=== PATIENT | female | born 1945 | race Caucasian/White ===

== ENCOUNTER 2018-04-10 17:13 | Emergency (ER) | payer MEDICARE ==
[~2018-04-10] VITALS: Ht 160 cm; Wt 84.1 kg
[2018-04-10 17:47] VITALS: Ht 160 cm; Wt 84.1 kg
[2018-04-10] MEDS ORDERED: RIOMET500 MG/5 M (17:50)
[2018-04-10] MEDS ORDERED: NORVASC2.5 MG (17:50)
[2018-04-10] MEDS ORDERED: GLUCOTROL ER2.5 MG (17:50)
[2018-04-10] MEDS ORDERED: COREG 3.1253.125 MG (17:50)
[2018-04-10] MEDS ORDERED: SINGULAIR 4 MG P4 MG (17:50)
[2018-04-10] MEDS ORDERED: SYNTHROID25 MCG (17:51)
[2018-04-10] MEDS ORDERED: PRANDIN1 MG (17:51)
[2018-04-10] MEDS ORDERED: DIOVAN40 MG (17:51)
[2018-04-10 18:34] LABS: BASOPHILS 0 % (0-2); HEMATOCRIT 40.7 % (36.0-48.0); HEMOGLOBIN 14.1 g/dL (12-16); IMMATURE GRANULOCYTES 0.1 % (0-5); LYMPHOCYTES 23.1 % (15-50); MCHC 34.6 g/dL (31.0-37.0); MCV 92.3 fL (80.0-100.0); MEAN PLATELET VOLUME 10.3 fL (7.4-10.4); MONOCYTES 5.4 % (2-11); NEUTROPHILS 70.4 % (40-80); PLATELET COUNT 207 10x3/uL (130-400); RBC 4.41 10x6/uL (4.00-5.40); RDW 12.8 % (11.5-14.5); WBC 7.8 10x3/uL (4.8-10.8)
[2018-04-10 18:50] LABS: ALBUMIN 3.7 g/dL (3.4-5.0); ALKALINE PHOSPHATASE 69 U/L (46-116); ALT (SGPT) 33 U/L (10-68); CALC OSMOLALITY 294 mosm/kg (275-300); CALCIUM 9.1 mg/dL (8.5-10.1); CARBON DIOXIDE 26.5 mmol/L (21.0-32.0); CHLORIDE - SERUM 101 mmol/L (98-107); CREATININE - SERUM 1.5 mg/dL (0.6-1.3); GLUCOSE 308 mg/dL (74-106); POTASSIUM - SERUM 4.1 mmol/L (3.5-5.1); PROTEIN - SERUM 7.7 g/dL (6.4-8.2); SODIUM 139 mmol/L (136-145); UREA NITROGEN 26 mg/dL (7-18); eGFR NON AFRICAN AMERICAN 36 mL/min (90-120)
[2018-04-10 19:01] LABS: CKMB 0.5 U/L (0.0-3.6); CREATINE KINASE 23 UL (21-215); TROPONIN-I < 0.017 ng/mL (0.000-0.060)
[2018-04-10 19:12] LABS: KETONE - SERUM NEGATIVE (NEGATIVE)
[2018-04-10 21:35] VITALS: BP 153/67
== END 2018-04-10 21:35 | disposition home or self-care (01) ==
LOC: D.ER 17:13
PROVIDERS: Family Medicine
DX: R53.1 Weakness (principal); E86.0 Dehydration; E11.65 Type 2 diabetes mellitus with hyperglycemia; I10 Essential (primary) hypertension; I45.2 Bifascicular block

== ENCOUNTER → 2019-01-31 09:57 | Outpatient (CLI) | payer MEDICARE ==
[2018-04-10 17:47] VITALS: BMI 32.8
[~2019-01-31 09:57] MED LIST: COREG 3.1253.125 MG; DIOVAN40 MG; GLUCOTROL ER2.5 MG; NORVASC2.5 MG; PRANDIN1 MG; RIOMET500 MG/5 M; SINGULAIR 4 MG P4 MG; SYNTHROID25 MCG
== END | disposition home or self-care (01) ==
LOC: D.HCCECHO 09:57
PROVIDERS: ATTEND Internal Medicine Cardiovascular Disease
DX: I45.10 Unspecified right bundle-branch block (principal); I10 Essential (primary) hypertension

== ENCOUNTER 2019-02-21 11:23 | Outpatient (CLI) | payer MEDICARE ==
[~2019-02-21] VITALS: Ht 160 cm; Wt 81.8 kg
--- NOTE | ~2019-02-21 | HEMODYNAMI ---
PATIENT:ANDREW CERON MEDICAL RECORD: [id number] : 45 LOCATION:[facility] ADMISSION DATE: 02/21/19 Generatedon:02/21/201914:28 Patient name: ANDREW CERON Patient #: [id number] : 1945 Date of study: 02/21/2019 Page: Of Hemodynamic Procedure Report Patient Data Patient Demographics Procedure consent was obtained First Name: ANDREW Gender: Female Last Name: OSMANY : 1945 [facility] Initial: RACHELE Age: 73 year(s) Patient #: [id number] Race: SSN: [id number] Additional ID: [id number] Contact details [address]: [address] [place] [address] State: [place] City: [place] Zip code: [address] Admission Admission Data Admission Date: 02/21/2019 Admission Time: 11:23 Arrival Date: 02/21/2019 Arrival Time: 13:00 Admit Source: Other Insurance Payor: Medicare [facility] #: [id number] Height (in.): 62.99 BSA: 1.85 (m2) Height (cm.): 160 BMI: 32.03 (kg/m2) Weight (lbs.): 180.78 Weight (kg.): 82 Lab Results Lab Result Date: 02/21/2019 Lab Result Time: 0:00 Biochemistry Name Units Result Min Max BUN mg/dl 19 --(----)*- 7 18 Creatinine mg/dl 0.8 --(-*--)-- 0.6 1.3 eGFR ml/min 73.81942 *-(----)-- 90 120 NONAFRICAN CBC Name Units Result Min Max Hemoglobin g/dl 13.9 --(*---)-- 13.5 17.5 Procedure Procedure Types Cath Procedure Diagnostic Procedure LHC LHC w/Coronaries Sedation Charges Moderate Sedation up to 15 minutes Procedure Description Procedure Date Procedure Date: 02/21/2019 Procedure Start Time: 14:14 Procedure End Time: 14:26 Procedure Staff Name Function Jr Lemons MD Performing Physician Julissa Casillas RT Monitor Nancy Ortez RT Scrub Holland Villanueva RN Nurse Procedure Data Cath Procedure Fluoroscopy Diagnostic fluoroscopy Total fluoroscopy Time: 1.8 time: 1.8 min min Diagnostic fluoroscopy Total fluoroscopy dose: 384 dose: 384 mGy mGy Contrast Material Contrast Material Type Amount (ml) Isovue 300 48 Entry Location Entry Primary Successful Side Size Upsize Upsize Entry Closure Cooper ccessful Closure Location (Fr) 1 (Fr) 2 (Fr) Remarks Device Remarks Radial Right 6 Fr Mechanical artery Short Compression Estimated blood loss: 5 ml Diagnostic catheters Device Type Used For End Catheter Placement DIAGNOSTIC [place] 110cm 5 Procedure Fr catheter ([id number]) Procedure Complications No complications Procedure Medications Medication Administration Route Dosage 0.9% NaCl I.V. 100 ml/hr Oxygen etCO2 Nasal cannula 2 l/min Heparin Flush Bag added to field 2 bags (1000units/500ml NS) Lidocaine 2% added to field 20 Benadryl I.V. 50 mg Versed I.V. 1 mg Fentanyl I.V. 50 mcg Versed I.V. 1 mg Versed I.V. 1 mg Radial Cocktail I.A. 1 syringe (Verapamil 2mg/Nitro 400mcg/Heparin 1500units) Hemodynamics Rest BSA: 1.85 (m2) HGB: 13.9 (g/dl) O2 Consumption: Estimated: 161.03 (ml/min) O2 Co nsumption indexed: Estimated:87.04 (ml/min/m) Heart Rate: 58 (bpm) Pressure Samples Time Site Value (mmHg) Purpose Heart Use Rate(bpm) 14:19 LV 83/-1,-2 Snapshot 68 14:19 LV 80/-3,-3 Snapshot 77 Gradients Valve Time Site Site Mean SEP/DFP Peak To Heart Use 1 2 (mmHg) (sec/min) Peak Rate (mmHg) (bpm) Aortic 14:20 LV AO 51 Snapshots Pre Cath Intra NCS Post Cath Vital Signs Time Heart Resp SPO2 etCO2 NIBP (mmHg) Rhythm Pain Sedation Rate (ipm) (%) (mmHg) Status Level (bpm) 13:49:04 58 14 98 0 143/66(119) NSR 0 (11) 10(A) , No pain 13:53:29 59 10 97 0 150/64(110) NSR 0 (11) 10(A) , No pain 13:57:47 54 15 100 40.2 140/87(122) NSR 0 (11) 10(A) , No pain 14:02:05 74 10 100 40.2 154/75(119) NSR 0 (11) 10(A) , No pain 14:06:27 57 13 100 25.7 137/67(107) NSR 0 (11) 10(A) , No pain 14:10:43 70 13 99 0 128/58(102) NSR 0 (11) 10(A) , No pain 14:15:01 55 13 99 0 130/63(96) NSR 0 (11) 9(A) , No pain 14:19:15 77 14 98 0 108/64(85) NSR 0 (11) 9(A) , No pain 14:23:23 79 13 96 0 125/67(92) NSR 0 (11) 9(A) , No pain Medications Time Medication Route Dose Verified Delivered Reason Notes Effectiveness by by 13:51:16 0.9% NaCl I.V. 100 Holland Holland Per ml/hr Rich Villanueva physician RN RN 13:51:27 Oxygen etCO2 2 l/min Holland Holland for low 02 Nasal Lorigan Lorigan sats cannula RN RN 13:51:40 Heparin Flush added 2 bags Holland Holland used for Bag to Rich Villanueva procedure (1000units/500ml RN RN NS) 13:51:50 Lidocaine 2% added 20ml Holland Holland for local to vial Rich Villanueva anesthetic RN RN 13:52:01 Benadryl I.V. 50 mg Holland Holland Per Rich Villanueva physician RN RN 13:58:40 Versed I.V. 1 mg Holland Holland for sedation Rich Villanueva RN RN 13:58:49 Fentanyl I.V. 50 mcg Holland Holland for sedation Rich Villanueva RN RN 14:04:40 Versed I.V. 1 mg Holland Holland for sedation Rich Villanueva RN RN 14:13:35 Versed I.V. 1 mg Holland Holland for sedation Rich Villanueva RN RN 14:17:40 Radial Cocktail I.A. 1 Holland Jr for (Verapamil syringe Rich Lemons MD vasodilation 2mg/Nitro RN 400mcg/Heparin 1500units) Procedure Log Time Note 13:30:40 Diagnostic Cath Status : Elective 13:31:38 Lab Result : Hemoglobin 13.9 g/dl 13:31:38 Lab Result : eGFR NONAFRICAN 73.29758 ml/min 13:31:38 Lab Result : BUN 19 mg/dl 13:31:38 Lab Result : Creatinine 0.8 mg/dl 13:32:02 Informed consent obtained and on chart 13:33:05 Admit Source: Other 13:33:07 Arrival Date: 02/21/2019 1:00:00 PM 13:33:31 Insurance Payor : Medicare 13:33:34 Patient Height : 62.99 inches 13:33:38 Patient Weight : 180.78 lbs 13:33:58 Procedure Status Elective Heart Cath (OP). 13:33:59 Julissa Casillas RT(R) sent for patient. Start room use. 13:34:08 Time tracking: Regular hours (M-F 7:00 - 5:00) 13:34:13 Plan of Care:Hemodynamics will remain stable., Cardiac rhythm will remain stable., Comfort level will be maintained., Respiratory function will remain adequate., Patient/ family verbilizes understanding of procedure., Procedure tolerated without complication., Recovers from procedure without complications.. 13:47:47 Patient received from Pre/Post Procedure Room to CCL 2 Alert and oriented. Tansferred to table in Supine position. 13:47:48 Warm blankets applied, and hailee hugger turned on for patient comfort. 13:47:49 Correct patient and procedure confirmed by team. 13:47:49 ECG and BP/O2 sat monitors applied to patient. 13:47:49 Vital chart was started 13:47:50 Baseline sample Acquired. 13:47:54 Rhythm: sinus rhythm 13:47:56 Full Disclosure recording started 13:47:59 H&P Date Dictated: 02/21/2019 Within 30 days and on chart., H&P Addendum completed by physician on day of procedure. (MUST COMPLETE FOR ALL OUTPATIENTS). 13:48:01 Pre-procedure instructions explained to patient. 13:48:01 Pre-op teaching completed and patient verbalized understanding. 13:48:03 Family in patients room. 13:48:04 Patient NPO since Midnight. 13:48:07 Is the patient allergic to Iodine/contrast media? No. 13:48:08 Was the patient premedicated? Yes 13:51:16 0.9% NaCl 100 ml/hr I.V. was administered by Holland Villanueva RN; Per physician; Verbal order read back and verified. 13:51:27 Oxygen 2 l/min etCO2 Nasal cannula was administered by Holland Villanueva RN; for low 02 sats; Verbal order read back and verified. 13:51:40 Heparin Flush Bag (1000units/500ml NS) 2 bags added to field was administered by Holland Villanueva RN; used for procedure; Verbal order read back and verified. 13:51:50 Lidocaine 2% 20ml vial added to field was administered by Holladn Villanueva RN; for local anesthetic; Verbal order read back and verified. 13:52:01 Benadryl 50 mg I.V. was administered by Holland Villanueva RN; Per physician; Verbal order read back and verified. 13:52:10 2) 60-89 Mildly reduced kidney function, and other findings (as for stage 1) point to kidney disease. 13:52:27 Maximum allowable contrast dose (3.7 X eGFR X 0.75)205 ml. 13:52:43 Is patient on blood thinner?No 13:52:47 Patient diabetic? Yes. 13:53:16 Snore? Unknown 13:53:17 Sleep apnea? No 13:53:23 Dentures? No ? 13:53:27 Patient pain scale 0/10 ?. 13:53:34 IV patent on arrival in left forearm with 0.9% NaCl at [facility]. 13:53:39 Lab results completed and on chart. 13:54:04 Stress Test: yes; abnormal apical 13:54:10 Risk of Mortality: .1 13:54:14 Risk of blood transfusion: .1 13:54:17 Risk of TIFFANIE: .1 13:54:23 Right Radial & Right Groin area was prepped with chlora-prep and draped in sterile fashion 13:54:24 Alarms reviewed by R. N. 13:54:25 Sharps counted by scrub and verified by R.N. 13:54:30 Physician paged 13:54:30 Physician arrived 13:54:32 --------ALL STOP TIME OUT------ 13:54:33 Final Timeout: patient, procedure, and site verified with staff and physician. All members of the team are in agreement. 13:54:52 Right Radial & Right Groin site verified by team. 13:54:56 Fire Safety Assessment: A--An alcohol-based skin anteseptic being used preoperatively., C--Open oxygen or nitrous oxide is being used., D--An ESU, laser, or fiber-optic light is being used. 13:55:02 Physical assessment completed. ASA score P 2 - A patient with mild systemic disease as per Jr Lemons MD. 13:55:08 Sedation plan: IV Moderate Sedation Medication:Versed, Fentanyl 13:55:17 Use device set Radial Dx or PCI 13:55:19 ACIST Syringe (78687) opened to sterile field. 13:55:19 Medline Cath Pack ([id number]) opened to sterile field. 13:55:20 Bag Decanter (2002S) opened to sterile field. 13:55:21 ACIST Hand Control (30828) opened to sterile field. 13:55:21 ACIST Manifold (42965) opened to sterile field. 13:55:27 MBrace Wrist Support ([id number]) opened to sterile field. 13:55:28 NEEDLE Cook 21G 4cm Radial (I05676) opened to sterile field. 13:55:31 EMERALD Guide Wire (118-545) opened to sterile field. 13:55:31 SHEATH 6FR RAIN (3723884) opened to sterile field. 13:58:40 Versed 1 mg I.V. was administered by Holland Villanueva RN; for sedation; Verbal order read back and verified. 13:58:49 Fentanyl 50 mcg I.V. was administered by Holland Villanueva RN; for sedation; Verbal order read back and verified. 14:04:40 Versed 1 mg I.V. was administered by Holland Villanueva RN; for sedation; Verbal order read back and verified. 14:07:00 Zero performed for pressure channel P1 14:12:55 Procedure started. 14:13:35 Versed 1 mg I.V. was administered by Holland Villanueva RN; for sedation; Verbal order read back and verified. 14:14:47 Local anesthetic to right radial artery with Lidocaine 2% by Jr Lemons MD.INITIAL ACCESS ONLY 14:17:40 Radial Cocktail (Verapamil 2mg/Nitro 400mcg/Heparin 1500units) 1 syringe I.A. was administered by Jr Lemons MD; for vasodilation; Verbal order read back and verified. 14:19:29 A 6 Fr Short sheath was inserted into the Right Radial artery 14:19:36 J wire advanced. 14:20:08 EF : 55 % 14:20:27 A DIAGNOSTIC [place] 110cm 5 Fr catheter (140452) was advanced over the wire and used for Procedure. 14:20:35 LV angiography performed. 14:20:41 LCA angiography performed. 14:23:04 RCA angiography performed. 14:23:06 Catheter removed. 14:24:20 ZEPHYR LARGE TR BAND (170299) opened to sterile field. 14:24:35 Sheath removed intact; hemostasis achieved with Mechanical Compression to the Right Radial artery. 14:24:38 Procedure ended.(Physican Out) 14:24:50 Fluoroscopy time 01.80 minutes. 14:24:56 Fluoroscopy dose: 384 mGy 14:24:56 Flurop Dose total: 384 14:25:02 Dose Area Product 20223 mGy/cm. 14:25:07 Contrast amount:Isovue 300 48ml. 14:25:09 Maximum allowable dose exceeded? No. 14:25:10 Sharps counted by scrub and verified by R.N. 14:25:12 [place] band inflated with 10cc of air. 14:25:14 Insertion/operative site no bleeding no hematoma. 14:25:18 Post Procedure Pulses reassessed and unchanged 14:25:23 Post-procedure physical assessment completed. ASA score P 2 - A patient with mild systemic disease as per Jr Lemons MD. 14:25:26 Post procedure rhythm: unchanged. 14:25:44 Estimated blood loss: 5 ml 14:25:48 Post procedure instruction explained to patient.Patient verbalizes understanding. 14:26:09 Procedure type changed to Cath procedure, Diagnostic procedure, LHC, LHC w/Coronaries, Sedation Charges, Moderate Sedation up to 15 minutes 14:26:12 Procedure and supply charges have been captured, reviewed, submitted and are correct. 14:26:32 Procedure Complication : No complications 14:26:35 Vital chart was stopped 14:26:37 [facility] Findings: mild to moderate CAD (<70%) 14:26:43 Report given to Pre/Post Procedure Room. 14:26:46 Patient transfered to Pre/Post Procedure Room with Stretcher. 14:26:48 Procedure ended. 14:26:48 Full Disclosure recording stopped 14:26:54 End room use (Document Last) 14:27:34 End room use (Document Last) 14:28:01 End room use (Document Last) Device Usage Item Name Manufacture Quantity Catalog Hospital Part Current Minima l Lot# / Number Charge Number Stock Stock Serial# Code ACIST Acist 1 05723 372309 025573 [id number] 20 Syringe Medical (40664) Systems Inc Medline Medline 1 [id number] 246243 80149 853063 5 Cath Pack ([id number]) Bag Microtek 1 2001S 228573 86503 941064 5 Decanter Medical Inc. () ACIST Hand Acist 1 89715 736711 349348 627031 5 Control Medical (92037) Systems Inc ACIST Acist 1 16629 679909 661699 968025 5 Manifold Medical (31152) Systems Inc MBrace Advanced 1 140-0250-00 626478 19541 031283 5 Wrist Vascular Support Dynamics ([id number]) NEEDLE Cook Cook Medical 1 [id number] 437242 627883 860312 5 21G 4cm Radial (G43689) EMERALD Cardinal 1 502-455 171038 223902 099294 5 Guide Wire Health (502455) SHEATH 6FR Cardinal 1 9504561 245309 9669705 390237 5 [facility] (7176975) DIAGNOSTIC Terumo 1 40-5013 790861 460692 244604 5 [place] 110cm 5 Fr catheter (453128) ZEPHYR Cardinal 1 660440 617503 7627536 060333 5 LARGE TR Health BAND (723616) Signature Audit [place] Stage Time Signature Unsigned Intra-Procedure 02/21/2019 Julissa Casillas 2:27:34 PM RT(R) Intra-Procedure 02/21/2019 Holland 2:28:01 PM Rich MATA Intra-Procedure 02/21/2019 Jr Lemons MD 2:28:32 PM Signatures Performing Physician : Signature : Jr Lemons MD Date : Time : Monitor : Julissa Vinny Signature : RT Date : Time : Nurse : Holland Lorigan Signature : RN Date : Time : [address] [place] [address]
[2019-02-21] MEDS ORDERED: GLUCOPHAGE500 MG PO (12:10)
[2019-02-21] MEDS ORDERED: GLIPIZIDE10 MG PO (12:11)
[2019-02-21] MEDS ORDERED: COZAAR100 MG PO (12:11)
[2019-02-21] MEDS ORDERED: COREG25 MG PO (12:11)
[2019-02-21] MEDS ORDERED: SINGULAIR10 MG PO (12:12)
[2019-02-21] MEDS ORDERED: PRANDIN2 MG PO (12:12)
[2019-02-21] MEDS ORDERED: NORVASC10 MG PO (12:12)
[2019-02-21] MEDS ORDERED: HYDROCHLOROTH12.5 M1 PO (12:13)
[2019-02-21 12:26] VITALS: BP 171/73; Ht 160 cm; Wt 81.8 kg
[2019-02-21 12:35] LABS: BASOPHILS 0.2 % (0-2); EOSINOPHILS 2.5 % (0-7); HEMATOCRIT 39.7 % (36.0-48.0); HEMOGLOBIN 13.9 g/dL (12-16); IMMATURE GRANULOCYTES 0.2 % (0-5); LYMPHOCYTES 33.5 % (15-50); MCH 32.3 pg (26.0-34.0); MCV 92.3 fL (80.0-100.0); MEAN PLATELET VOLUME 9.9 fL (7.4-10.4); MONOCYTES 8.3 % (2-11); NEUTROPHILS 55.3 % (40-80); PLATELET COUNT 224 10x3/uL (130-400); RDW 12.8 % (11.5-14.5); WBC 6.5 10x3/uL (4.8-10.8)
[2019-02-21 12:46] LABS: ANION GAP 10.7 mmol/L (8-16); CALCIUM 9.5 mg/dL (8.5-10.1); CARBON DIOXIDE 26.3 mmol/L (21.0-32.0); CREATININE - SERUM 0.8 mg/dL (0.6-1.3)
--- NOTE | 2019-02-21 14:40 | NUR ---
REC TO ROOM VIA STRETCHER, SUPINE. MONITORING INITIATED. HOB UP 30*, WATER PROVIDED. BED LOW, CALL LIGHT IN HAND, SIDERAILS UP X 2. FRIENDS AT BEDSIDE.
--- NOTE | 2019-02-21 14:55 | NUR ---
R RADIAL ZBAND IN PLACE, NO BLEEDING/HEMATOMA. RAD PULSE PALPABLE. HR 57, RR 15, BP 146/74. O2 SAT 99% ON 2LNC. NO COMPLAINTS. DTR AT BEDSIDE.
--- NOTE | 2019-02-21 15:24 | NUR ---
R RADIAL ZBAND INTACT, NO BLEEDING OR HEMATOMA. RADIAL PULSE PALPABLE. FINGERS PINK/WARM. NSR, HR 56, NIBP 134/64, SAT 99% ON 2LNC. DENIES NEEDS. DTR AT BEDSIDE.
--- NOTE | 2019-02-21 15:40 | NUR ---
2ML AIR REMOVED ZBAND R WRIST. NO BLEEDING/HEMATOMA. O2 REMOVED. BEDPAN PER REQUEST, VOIDED CL PALE YELLOW URINE. SANDWICH/DIET SODA PROVIDED.
--- NOTE | 2019-02-21 15:57 | NUR ---
EATING SANDWICH, NO COMPLAINTS. R RADIAL ZBAND NO BLEEDING/HEMATOMA. SAT 96%RA, HR NSR 75, BP 129/72, RR 12
--- NOTE | 2019-02-21 16:10 | NUR ---
3ML REMOVED FROM Z BAND, R RADIAL. NO BLEEDING/HEMATOMA. VSS SR 59, SAT 97%RA, BP 123/71.
--- NOTE | 2019-02-21 16:29 | NUR ---
3ML AIR REMOVED ZBAND, 8ML OUT TOTAL. R RADIAL WITHOUT BLEEDING OR HEMATOMA. VSS, HR 59, NIBP 139/79, SAT 97%RA.
--- NOTE | 2019-02-21 16:40 | NUR ---
TOTAL 9ML OUT OF ZBAND. NO BLEEDING/HEMATOMA. MONITORING DC. PT DRESSING W DTR'S ASSISTANCE.
--- NOTE | 2019-02-21 16:52 | NUR ---
AMBULATED TO RESTROOM
--- NOTE | 2019-02-21 17:00 | NUR ---
ZBAND REMOVED. DISCHARGE INSTRUCTIONS AND FOLLOWUP APPOINTMENTS REVIEWED W PT AND DTR.
--- NOTE | 2019-02-21 17:10 | NUR ---
DC HOME W DTR VIA WHEELCHAIR TO PRIVATE CAR, R WRIST REMAINS DRY ANDCLEAN DRESSED W TEGADERM AND 2X2 GAUZE. PT WEARING IMMOBILIZER REMINDER TO RESTRICT ACTIVITY.
== END 2019-02-21 17:10 | disposition home or self-care (01) ==
LOC: D.CATH 11:23
PROVIDERS: ATTEND Internal Medicine Cardiovascular Disease
DX: R94.30 Abnormal result of cardiovascular function study, unspecified (principal); R06.02 Shortness of breath; I20.9 Angina pectoris, unspecified; E11.9 Type 2 diabetes mellitus without complications; Z79.84 Long term (current) use of oral hypoglycemic drugs; I45.10 Unspecified right bundle-branch block; I10 Essential (primary) hypertension

== ENCOUNTER 2019-04-27 18:23 | Emergency (ER) | payer MEDICARE ==
[~2019-04-27] VITALS: Ht 160 cm; Wt 81.8 kg
[~2019-04-27 18:23] MED LIST changes: +COREG25 MG PO; +COZAAR100 MG PO; +GLIPIZIDE10 MG PO; +GLUCOPHAGE500 MG PO; +HYDROCHLOROTH12.5 M1 PO; +NORVASC10 MG PO; +PRANDIN2 MG PO; +SINGULAIR10 MG PO
[2019-04-27 18:30] VITALS: Ht 160 cm; Wt 81.8 kg
[2019-04-27 18:58] LABS: BASOPHILS 0.1 % (0-2); EOSINOPHILS 1.9 % (0-7); HEMATOCRIT 41.9 % (36.0-48.0); HEMOGLOBIN 14.1 g/dL (12-16); IMMATURE GRANULOCYTES 0.2 % (0-5); LYMPHOCYTES 30.2 % (15-50); MCH 31.5 pg (26.0-34.0); MCHC 33.7 g/dL (31.0-37.0); MCV 93.5 fL (80.0-100.0); MEAN PLATELET VOLUME 10.1 fL (7.4-10.4); MONOCYTES 7.9 % (2-11); NEUTROPHILS 59.7 % (40-80); PLATELET COUNT 219 10x3/uL (130-400); RBC 4.48 10x6/uL (4.00-5.40); RDW 12.5 % (11.5-14.5); WBC 8.5 10x3/uL (4.8-10.8)
[2019-04-27 18:59] LABS: INR 0.96 (0.85-1.17); PROTIME 12.8 SECONDS (11.6-15.0)
[2019-04-27 19:08] LABS: CALC OSMOLALITY 288 mosm/kg (275-300); CALCIUM 9.4 mg/dL (8.5-10.1); CARBON DIOXIDE 29.3 mmol/L (21.0-32.0); CHLORIDE - SERUM 102 mmol/L (98-107); CREATININE - SERUM 1.4 mg/dL (0.6-1.3); GLUCOSE 147 mg/dL (74-106); SODIUM 141 mmol/L (136-145); UREA NITROGEN 27 mg/dL (7-18); eGFR NON AFRICAN AMERICAN 39 mL/min (90-120)
[2019-04-27 19:22] LABS: ALBUMIN 3.6 g/dL (3.4-5.0); ALKALINE PHOSPHATASE 74 U/L (30-120); ALT (SGPT) 29 U/L (10-68); BILIRUBIN - TOTAL 0.56 mg/dL (0.2-1.3); CKMB 0.2 U/L (0.0-3.6); CREATINE KINASE 27 UL (21-215); MAGNESIUM - SERUM 1.5 mg/dL (1.8-2.4); PROTEIN - SERUM 7.7 g/dL (6.4-8.2)
[2019-04-27 19:26] LABS: TROPONIN-I < 0.017 ng/mL (0.000-0.060)
[2019-04-27 20:29] LABS: APPEARANCE CLEAR (CLEAR); BILIRUBIN NEGATIVE (NEGATIVE); COLOR YELLOW (YELLOW); GLUCOSE NEGATIVE (NEGATIVE); KETONE NEGATIVE (NEGATIVE); NITRITE NEGATIVE (NEGATIVE); PROTEIN NEGATIVE (NEGATIVE); UROBILINOGEN NORMAL (NORMAL)
[2019-04-27 22:30] VITALS: BP 169/82
== END 2019-04-27 22:30 | disposition home or self-care (01) ==
LOC: D.ER 18:23
PROVIDERS: Family Medicine
DX: R55 Syncope and collapse (principal); E83.42 Hypomagnesemia; N28.9 Disorder of kidney and ureter, unspecified; E11.9 Type 2 diabetes mellitus without complications; I10 Essential (primary) hypertension

== ENCOUNTER 2020-05-16 20:05 | Emergency (ER) | payer MEDICARE ==
[~2020-05-16] VITALS: Ht 160 cm; Wt 84.1 kg
[2020-05-16 20:10] VITALS: Ht 160 cm; Wt 84.1 kg
[2020-05-16 20:51] LABS: BASOPHILS 0 % (0-2); EOSINOPHILS 0.5 % (0-7); HEMATOCRIT 39.2 % (36.0-48.0); HEMOGLOBIN 13.3 g/dL (12-16); IMMATURE GRANULOCYTES 0.2 % (0-5); LYMPHOCYTE ABS# 0.76 10x3/uL (1.18-3.74); LYMPHOCYTES 9.1 % (15-50); MCH 31.1 pg (26.0-34.0); MCHC 33.9 g/dL (31.0-37.0); MCV 91.6 fL (80.0-100.0); MONOCYTES 4.6 % (2-11); NEUTROPHIL ABS# 7.11 10x3/uL (1.56-6.13); NEUTROPHILS 85.6 % (40-80); PLATELET COUNT 204 10x3/uL (130-400); RBC 4.28 10x6/uL (4.00-5.40); RDW 13.5 % (11.5-14.5); WBC 8.3 10x3/uL (4.8-10.8)
[2020-05-16 20:59] LABS: ANION GAP 14.2 mmol/L (8-16); CREATININE - SERUM 1.4 mg/dL (0.6-1.3); POTASSIUM - SERUM 4.2 mmol/L (3.5-5.1)
[2020-05-16 21:06] LABS: ALBUMIN 3.7 g/dL (3.4-5.0); BILIRUBIN - TOTAL 0.54 mg/dL (0.2-1.3); PROTEIN - SERUM 7.7 g/dL (6.4-8.2)
[2020-05-16 21:33] VITALS: BP 132/85
== END 2020-05-16 21:33 | disposition home or self-care (01) ==
LOC: D.ER 20:05
PROVIDERS: Family Medicine
DX: R50.83 Postvaccination fever (principal); N18.9 Chronic kidney disease, unspecified; E11.65 Type 2 diabetes mellitus with hyperglycemia; E87.1 Hypo-osmolality and hyponatremia; I12.9 Hypertensive chronic kidney disease with stage 1 through stage 4 chronic kidney disease, or unspecified chronic kidney disease; Z79.84 Long term (current) use of oral hypoglycemic drugs

== ENCOUNTER 2020-05-19 10:31 | Inpatient (IN) | payer MEDICARE ==
[~2020-05-19] VITALS: Ht 160 cm; Wt 83.9 kg
[2020-05-19 11:00] LABS: ANION GAP 11.5 mmol/L (8-16); CALCIUM 9.4 mg/dL (8.5-10.1); CARBON DIOXIDE 22.3 mmol/L (21.0-32.0); CREATININE - SERUM 1.6 mg/dL (0.6-1.3); POTASSIUM - SERUM 4.8 mmol/L (3.5-5.1)
[2020-05-19 11:04] LABS: BASOPHILS 0 % (0-2); EOSINOPHILS 0.2 % (0-7); HEMATOCRIT 37.4 % (36.0-48.0); HEMOGLOBIN 12.7 g/dL (12-16); IMMATURE GRANULOCYTES 0.2 % (0-5); LYMPHOCYTE ABS# 0.74 10x3/uL (1.18-3.74); LYMPHOCYTES 9.2 % (15-50); MCH 30.8 pg (26.0-34.0); MCV 90.8 fL (80.0-100.0); MEAN PLATELET VOLUME 9.5 fL (7.4-10.4); MONOCYTES 3.6 % (2-11); NEUTROPHIL ABS# 6.98 10x3/uL (1.56-6.13); NEUTROPHILS 86.8 % (40-80); PLATELET COUNT 207 10x3/uL (130-400); RBC 4.12 10x6/uL (4.00-5.40); RDW 13.6 % (11.5-14.5); WBC 8.1 10x3/uL (4.8-10.8)
[2020-05-19 11:06] LABS: BILIRUBIN - TOTAL 0.54 mg/dL (0.2-1.3); PROTEIN - SERUM 7.1 g/dL (6.4-8.2)
--- NOTE | 2020-05-19 11:19 | NUR ---
TO CT VIA WC WITH CLASSIFIED ADVERTISING CLERK
--- NOTE | 2020-05-19 11:49 | NUR ---
RTND FROM CT, REPORTS PAIN DECREASED AND "I'M REALLY SLEEPY"
[2020-05-19 11:50] VITALS: BP 123/53
[2020-05-19 13:40] LABS: BILIRUBIN NEGATIVE (NEGATIVE); KETONE NEGATIVE (NEGATIVE); NITRITE NEGATIVE (NEGATIVE); UROBILINOGEN NORMAL mg/dL (< 2); WHITE CELLS - URINE 0-5 HPF (0-4)
[2020-05-19 13:41] LABS: BACTERIA FEW HPF (NONE SEEN); SQUAMOUS EPITHELIAL OCC HPF (0-4)
[2020-05-19 13:42] LABS: EPITHELIAL CELL CAST OCC LPF (NONE SEEN); GRANULAR CAST NONE SEEN LPF (NONE SEEN)
[2020-05-19 14:00] VITALS: BP 138/57
--- NOTE | 2020-05-19 14:18 | NUR ---
RESTING IN BED WITH EYES CLOSED. AROUSES EASILY WHEN NAME CALLED. DENIES C/O FAMILY AT BS
[2020-05-19 15:00] VITALS: BP 140/68
[2020-05-19 15:14] LABS: BASOPHILS 0 % (0-2); EOSINOPHILS 0.3 % (0-7); HEMATOCRIT 33.2 % (36.0-48.0); HEMOGLOBIN 11.3 g/dL (12-16); IMMATURE GRANULOCYTES 0.3 % (0-5); LYMPHOCYTE ABS# 1.01 10x3/uL (1.18-3.74); LYMPHOCYTES 14.8 % (15-50); MEAN PLATELET VOLUME 9.4 fL (7.4-10.4); NEUTROPHILS 80.6 % (40-80); PLATELET COUNT 196 10x3/uL (130-400); RBC 3.65 10x6/uL (4.00-5.40); RDW 13.6 % (11.5-14.5); WBC 6.8 10x3/uL (4.8-10.8)
[2020-05-19 15:21] LABS: ALBUMIN 2.7 g/dL (3.4-5.0); ANION GAP 12.8 mmol/L (8-16); BILIRUBIN - TOTAL 0.3 mg/dL (0.2-1.3); CALCIUM 8.4 mg/dL (8.5-10.1); CARBON DIOXIDE 22.1 mmol/L (21.0-32.0); CREATININE - SERUM 1.4 mg/dL (0.6-1.3); POTASSIUM - SERUM 3.9 mmol/L (3.5-5.1); PROTEIN - SERUM 5.8 g/dL (6.4-8.2)
--- NOTE | 2020-05-19 18:00 | NUR ---
REPORT CALLED TO KEVIN MATA ON M2
--- NOTE | 2020-05-19 18:39 | NUR ---
PT TO ROOM FROM ER ON CART. ASSIST TO BED. FAMILY AT BEDSIDE. PT ON ROOM AIR.
[2020-05-19 19:31] VITALS: BP 114/56
[2020-05-19 23:08] VITALS: BP 114/56; BMI 32.8
[2020-05-19 23:30] VITALS: BP 144/64
--- NOTE | 2020-05-20 00:28 | NUR ---
RECIEVED UP IN BED WITH EYES OPENA ND SON AT BEDSIDE. ALERT AND ORIETNED X4. UP WITH ASSIST TO B/R. IV TO RT FA SL. NEW ORDER FOR 100CC FLUID RESTRICTION. DENIES ANY NEEDS AT THISS TIME.
[2020-05-20 04:08] VITALS: BP 142/49
[2020-05-20 05:20] LABS: BASOPHILS 0.2 % (0-2); EOSINOPHILS 0.7 % (0-7); HEMOGLOBIN 11.3 g/dL (12-16); IMMATURE GRANULOCYTES 0.5 % (0-5); LYMPHOCYTE ABS# 1.22 10x3/uL (1.18-3.74); LYMPHOCYTES 20.2 % (15-50); MCH 30.9 pg (26.0-34.0); MCHC 34.2 g/dL (31.0-37.0); MCV 90.2 fL (80.0-100.0); MEAN PLATELET VOLUME 10.1 fL (7.4-10.4); MONOCYTES 5.3 % (2-11); NEUTROPHIL ABS# 4.42 10x3/uL (1.56-6.13); NEUTROPHILS 73.1 % (40-80); PLATELET COUNT 145 10x3/uL (130-400); RBC 3.66 10x6/uL (4.00-5.40); RDW 13.6 % (11.5-14.5)
[2020-05-20 05:24] LABS: APTT 27.6 SECONDS (22.8-39.4); INR 1.26 (0.85-1.17); PROTIME 14.6 SECONDS (11.6-15.0)
[2020-05-20 05:35] LABS: ALBUMIN 2.6 g/dL (3.4-5.0); ANION GAP 11.9 mmol/L (8-16); BILIRUBIN - TOTAL 0.33 mg/dL (0.2-1.3); CALCIUM 8.9 mg/dL (8.5-10.1); CARBON DIOXIDE 24.2 mmol/L (21.0-32.0); CREATININE - SERUM 1.2 mg/dL (0.6-1.3); POTASSIUM - SERUM 4.1 mmol/L (3.5-5.1); PROTEIN - SERUM 6.3 g/dL (6.4-8.2)
[2020-05-20 08:59] VITALS: BP 143/62
[2020-05-20 12:19] VITALS: BP 145/60
[2020-05-20 12:30] VITALS: Ht 160 cm; Wt 83.9 kg
[2020-05-20 17:41] VITALS: BP 127/46
--- NOTE | 2020-05-20 19:10 | NUR ---
LYING IN BED AWAKE, ALERT, ORIENTED. MOF AT BEDSIDE VISITING. RESP EVEN AND UNLABORED ON RA. NO DISTRESS, PT DENIES ANY NEEDS.
[2020-05-20 21:15] VITALS: BP 139/56
[2020-05-21 03:45] LABS: INFLUENZA TYPE A NEGATIVE (NEGATIVE); INFLUENZA TYPE B NEGATIVE (NEGATIVE)
[2020-05-21 04:59] VITALS: BP 140/57
[2020-05-21 05:02] LABS: BASOPHILS 0 % (0-2); EOSINOPHILS 2.5 % (0-7); HEMATOCRIT 32.8 % (36.0-48.0); HEMOGLOBIN 10.8 g/dL (12-16); IMMATURE GRANULOCYTES 0.5 % (0-5); LYMPHOCYTE ABS# 1.25 10x3/uL (1.18-3.74); LYMPHOCYTES 22.1 % (15-50); MCH 30.6 pg (26.0-34.0); MCHC 32.9 g/dL (31.0-37.0); MEAN PLATELET VOLUME 8.9 fL (7.4-10.4); MONOCYTES 7.6 % (2-11); NEUTROPHILS 67.3 % (40-80); RBC 3.53 10x6/uL (4.00-5.40); WBC 5.7 10x3/uL (4.8-10.8)
[2020-05-21 05:15] LABS: MCV 92.9 fL (80.0-100.0); PLATELET COUNT 221 10x3/uL (130-400)
[2020-05-21 05:24] LABS: ALBUMIN 2.3 g/dL (3.4-5.0); ANION GAP 13.2 mmol/L (8-16); BILIRUBIN - TOTAL 0.32 mg/dL (0.2-1.3); CALCIUM 8.4 mg/dL (8.5-10.1); CARBON DIOXIDE 20.4 mmol/L (21.0-32.0); MAGNESIUM - SERUM 1.2 mg/dL (1.8-2.4); PHOSPHOROUS 3.3 mg/dL (2.5-4.9); POTASSIUM - SERUM 3.6 mmol/L (3.5-5.1)
[2020-05-21 05:31] LABS: CREATININE - SERUM 0.8 mg/dL (0.6-1.3)
--- NOTE | 2020-05-21 05:32 | NUR ---
LYING IN BED AWAKE, ALERT, ORIENTED. RESP EVEN AND UNLABORED ON RA. AM MEDS ADMINISTERED/ORDER. PT HAS NOT SLEPT TONIGHT, C/O THAT SHE HAS BEEN AWAKE ALL NIGHT LONG. NO OTHER C/O. NO DISTRESS NOTED.
[2020-05-21 08:00] VITALS: BP 160/69
[2020-05-21 11:00] VITALS: BP 139/61
--- NOTE | 2020-05-21 13:25 | NUR ---
I have reviewed this patient and I concur with the Shift Assessment completed by the Licensed Practical Nurse today this shift.
--- NOTE | 2020-05-21 14:22 | NUR ---
PATIENT WAS IN CHAIR WHEN TECH CAME IN ROOM. PATIENT ABLE TO STAND BY HERSELF AND WALK IN [place] 250 FEET WITH CGA.
[2020-05-21 15:00] VITALS: BP 141/63
--- NOTE | 2020-05-21 19:07 | NUR ---
LYING IN BED AWAKE, ALERT, ORIENTED, WATCHING TV. RESP EVEN AND UNLABORED ON RA. NO DISTRESS NOTED, PT DENIES ANY NEEDS.
[2020-05-21 22:31] VITALS: BP 135/42
--- NOTE | 2020-05-21 23:09 | NUR ---
PT'S IV LEAKING TO RT AC--REMOVED INTACT CATH--PLACED BANDAGE OVER SITE--RESTARTED W/20GA X'S 1 STICK TO RIGHT FA--PT TOLERATED ALL WELL.
[2020-05-22 00:51] VITALS: BP 138/66
[2020-05-22 04:54] VITALS: BP 163/62
[2020-05-22 05:46] LABS: BASOPHILS 0.2 % (0-2); EOSINOPHILS 3.7 % (0-7); HEMATOCRIT 31.8 % (36.0-48.0); HEMOGLOBIN 10.7 g/dL (12-16); IMMATURE GRANULOCYTES 1.6 % (0-5); LYMPHOCYTE ABS# 1.52 10x3/uL (1.18-3.74); LYMPHOCYTES 29.5 % (15-50); MCH 30.6 pg (26.0-34.0); MCHC 33.6 g/dL (31.0-37.0); MEAN PLATELET VOLUME 9.1 fL (7.4-10.4); MONOCYTES 8.7 % (2-11); NEUTROPHIL ABS# 2.91 10x3/uL (1.56-6.13); NEUTROPHILS 56.3 % (40-80); RDW 13.6 % (11.5-14.5); WBC 5.2 10x3/uL (4.8-10.8)
[2020-05-22 05:49] LABS: ALBUMIN 2.5 g/dL (3.4-5.0); ANION GAP 11.6 mmol/L (8-16); BILIRUBIN - TOTAL 0.35 mg/dL (0.2-1.3); CALCIUM 8.6 mg/dL (8.5-10.1); CARBON DIOXIDE 24.9 mmol/L (21.0-32.0); CREATININE - SERUM 0.8 mg/dL (0.6-1.3); MAGNESIUM - SERUM 1.2 mg/dL (1.8-2.4); PHOSPHOROUS 2.8 mg/dL (2.5-4.9); POTASSIUM - SERUM 3.5 mmol/L (3.5-5.1); PROTEIN - SERUM 6.3 g/dL (6.4-8.2)
[2020-05-22 05:53] LABS: MCV 90.9 fL (80.0-100.0); PLATELET COUNT 290 10x3/uL (130-400)
[2020-05-22] MEDS ORDERED: FLORAJEN3 CAPS460 MG PO (09:26)
[2020-05-22] MEDS ORDERED: MAG-OX 400 MG400 MG PO (09:27)
[2020-05-22] MEDS ORDERED: TORADOL10 MG PO (09:27)
[2020-05-22] MEDS ORDERED: OMNICEF300 MG PO (09:27)
--- NOTE | 2020-05-22 10:15 | NUR ---
CM met with patient at bedside after obtaining verbal consent. CM discussed availability / needs of home health, REHAB and medical equipment. PATIENT DENIES ANY DISCHARGE NEEDS. States daughter will pick her up at discharge. IMM signed and copy on chart.
--- NOTE | 2020-05-22 10:18 | MORECARE ---
CASE MANAGEMENT DISCHARGE SUMMARY PATIENT: ANDREW CERON UNIT: [id number] ADM DATE: 05/19/20 AGE: 75 : 45 SEX: F ROOM/BED: [facility] AUTHOR: BEVERLEY,DOC PHYSICIAN: REFERRING PHYSICIAN: GABINO SPENCER MD DATE OF SERVICE: 05/22/20 Case Management Discharge Planning Summary COMMENTS ENTERED DATE: 05/22/20 10:14 CT COMMENT TYPE: Discharge Planning REVIEWER: Joseline Marti CM met with patient at bedside after obtaining verbal consent. CM discussed availability / needs of home health, REHAB and medical equipment. PATIENT DENIES ANY DISCHARGE NEEDS. States daughter will pick her up at discharge. IMM signed and copy on chart. DCP REVIEW SUMMARY ANTICIPATED D/C DATE: EXPECTED LOS : CASE STATUS: DCP Initiated INITIAL REVIEW: 05/20/2020 INITIAL REVIEWER: Joseline Marti FINAL DISCHARGE DISPOSITION: : FINAL REVIEWER: FINAL REVIEW DATE: DCP Focus Questions & Answers - Added on: QUESTION: ANSWER : PROVIDER NETWORKING REVIEW DATE: 05/21/2020 SERVICE TYPE: Home Health Care REVIEWER: Martine Oliver PROVIDER: FINAL PROVIDER? : FINAL DATE/TIME: CT PATIENT: ANDREW CERON ENCOUNTER: [id number] MEDICAL RECORD#: [id number] ADMISSION DATE: 05/19/2020 DISCHARGE DATE: ATTENDING MD: CHRIS: AGE: 75 MARITAL STATUS: W DC PLAN ID: [id number] FACILITY: [facility] PRINTED ON: 05/22/20 10:18 CT All edits/amendments must be made on the electronic document DICTATION DATE: 05/22/20 1018 SEISMOGRAPH SUPERVISOR: DM 05/22/20 1018 RPT#: [id number] DC DATE: STATUS: ADM IN [facility] [address] [place] [address] END OF REPORT
[2020-05-22 10:19] VITALS: BP 155/65
--- NOTE | 2020-05-22 10:30 | MORECARE ---
CASE MANAGEMENT DISCHARGE SUMMARY PATIENT: ANDREW CERON UNIT: [id number] ADM DATE: 05/19/20 AGE: 75 : 45 SEX: F ROOM/BED: D.3094 AUTHOR: BEVERLEY,DOC PHYSICIAN: REFERRING PHYSICIAN: GABINO SPENCER MD DATE OF SERVICE: 05/22/20 Case Management Discharge Planning Summary COMMENTS ENTERED DATE: 05/22/20 10:14 CT COMMENT TYPE: Discharge Planning REVIEWER: Joseline Marti CM met with patient at bedside after obtaining verbal consent. CM discussed availability / needs of home health, REHAB and medical equipment. PATIENT DENIES ANY DISCHARGE NEEDS. States daughter will pick her up at discharge. IMM signed and copy on chart. DCP REVIEW SUMMARY ANTICIPATED D/C DATE: EXPECTED LOS : CASE STATUS: DCP Initiated INITIAL REVIEW: 05/20/2020 INITIAL REVIEWER: Joseline Marti FINAL DISCHARGE DISPOSITION: : FINAL REVIEWER: FINAL REVIEW DATE: DCP Focus Questions & Answers DCP REV -DCP Review Added on: 05/22/20 10:19 am QUESTION: ANSWER DCP Screen High Risk Factors: : None Walking limitation: Patient stated self rated walking limitation present? : No Age: : 65 - 79 Prior living environment: : Lives Alone Disability ranking: : Grade 1: No significant disability DCP Evaluation Patient's ability to cope with chronic illness : d. No chronic illness Mental health screen: : No mental health history Would patient like to participate in any Care Coordination programs (if applicable): : Not applicable Physical Status: : Independent with ADL's Baseline cognitive status: : Alert Medication Management: : Patient states can afford medications [facility] : [facility] Does Patient have transportation to get home and to follow-up medical appointments when discharged from the hospital? : Yes Does the patient have electricity at home? : Yes Does the patient have running water in their house? : Yes Equipment in use: : None Abuse/Neglect: : None Problems identified by the patient regarding discharge: : NONE Patient's current cognitive status: : Alert Patient with capacity for self-care or can be cared for in same environment as prior to hospitalization? : Yes Preadmission facility can/cannot provide post hospital level of care needs: : Can - at same level of care as preadmission Is there a likelihood that the patient will require additional services to return to the preadmission environment? : No DCP Re-evaluation Would patient like to participate in any Care Coordination programs (if applicable): : Not applicable PROVIDER NETWORKING REVIEW DATE: 05/21/2020 SERVICE TYPE: Home Health Care REVIEWER: Martine Oliver PROVIDER: FINAL PROVIDER? : FINAL DATE/TIME: CT PATIENT: ANDREW CERON ENCOUNTER: [id number] MEDICAL RECORD#: [id number] ADMISSION DATE: 05/19/2020 DISCHARGE DATE: ATTENDING MD: CHRIS: AGE: 75 MARITAL STATUS: W DC PLAN ID: [id number] FACILITY: [facility] PRINTED ON: 05/22/20 10:29 CT All edits/amendments must be made on the electronic document DICTATION DATE: 05/22/20 102 BENEFITS MANAGER: MAGGY 05/22/20 1029 RPT#: [id number] DC DATE: STATUS: ADM IN [facility] [address] [place] [address] END OF REPORT
--- NOTE | 2020-05-22 11:02 | NUR ---
Nutrition Follow-up: Good appetite/PO intake. Denies N/V/C/D. No questions re: carb consistent diet info provided on 05/20. Fluid restriction was d/c'd. Noted plans to d/c home today. Diet: Diabetic PO intake: 100% x last 4 meals No new wt; last wt: 185# (05/20) Last BM: 05/21 Labs noted: Na 141, Glu 144, Mg 1.2, Alb 2.5 Meds noted: Glucotrol, Humalog, Florajen, Protonix, NS @ 100, electrolyte protocol -RD will follow up within 7 days if pt still admitted.
--- NOTE | 2020-05-22 11:59 | MORECARE ---
CASE MANAGEMENT DISCHARGE SUMMARY PATIENT: ANDREW CERON UNIT: [id number] ADM DATE: 05/19/20 AGE: 75 : 45 SEX: F ROOM/BED: D.8164 AUTHOR: BEVERLEY,DOC PHYSICIAN: REFERRING PHYSICIAN: GABINO SPENCER MD DATE OF SERVICE: 05/22/20 Case Management Discharge Planning Summary COMMENTS ENTERED DATE: 05/22/20 10:14 CT COMMENT TYPE: Discharge Planning REVIEWER: Joseline Marti CM met with patient at bedside after obtaining verbal consent. CM discussed availability / needs of home health, REHAB and medical equipment. PATIENT DENIES ANY DISCHARGE NEEDS. States daughter will pick her up at discharge. IMM signed and copy on chart. DCP REVIEW SUMMARY ANTICIPATED D/C DATE: EXPECTED LOS : CASE STATUS: DCP Initiated INITIAL REVIEW: 05/20/2020 INITIAL REVIEWER: Joseline Marti FINAL DISCHARGE DISPOSITION: : FINAL REVIEWER: FINAL REVIEW DATE: DCP Focus Questions & Answers DCP REV -DCP Review Added on: 05/22/20 10:19 am QUESTION: ANSWER DCP Screen High Risk Factors: : None Walking limitation: Patient stated self rated walking limitation present? : No Age: : 65 - 79 Prior living environment: : Lives Alone Disability ranking: : Grade 1: No significant disability DCP Evaluation Patient's ability to cope with chronic illness : d. No chronic illness Mental health screen: : No mental health history Would patient like to participate in any Care Coordination programs (if applicable): : Not applicable Physical Status: : Independent with ADL's Baseline cognitive status: : Alert Medication Management: : Patient states can afford medications [facility] : [facility] Does Patient have transportation to get home and to follow-up medical appointments when discharged from the hospital? : Yes Does the patient have electricity at home? : Yes Does the patient have running water in their house? : Yes Equipment in use: : None Abuse/Neglect: : None Problems identified by the patient regarding discharge: : NONE Patient's current cognitive status: : Alert Patient with capacity for self-care or can be cared for in same environment as prior to hospitalization? : Yes Preadmission facility can/cannot provide post hospital level of care needs: : Can - at same level of care as preadmission Is there a likelihood that the patient will require additional services to return to the preadmission environment? : No DCP Re-evaluation Would patient like to participate in any Care Coordination programs (if applicable): : Not applicable PROVIDER NETWORKING REVIEW DATE: 05/21/2020 SERVICE TYPE: Home Health Care REVIEWER: Martine Oliver PROVIDER: FINAL PROVIDER? : FINAL DATE/TIME: CT PATIENT: ANDREW CERON ENCOUNTER: [id number] MEDICAL RECORD#: [id number] ADMISSION DATE: 05/19/2020 DISCHARGE DATE: ATTENDING MD: CHRIS: AGE: 75 MARITAL STATUS: W DC PLAN ID: [id number] FACILITY: [facility] PRINTED ON: 05/22/20 11:59 CT All edits/amendments must be made on the electronic document DICTATION DATE: 05/22/20 115 WELDER 2ND SHIFT: MAGGY 05/22/20 1159 RPT#: [id number] DC DATE: STATUS: ADM IN [facility] [address] [place] [address] END OF REPORT
--- NOTE | 2020-05-22 12:00 | NUR ---
DISCHARGE INSTRUCTIONS PRINTED AND PROVIDED TO PATIENT. PATIENT VERBALIZED UNDERSTANDING. WAITING FOR DAUGHTER TO PICK PATIENT UP.
== END 2020-05-22 12:29 | disposition home or self-care (01) | DRG 690 ==
LOC: D.ER 10:31 → D.M2 15:11
PROVIDERS: Emergency Medicine; Family Medicine; ADMIT Family Medicine; ATTEND Family Medicine
DX: N39.0 Urinary tract infection, site not specified (principal); E87.1 Hypo-osmolality and hyponatremia; N17.9 Acute kidney failure, unspecified; G72.81 Critical illness myopathy; W19.XXXA Unspecified fall, initial encounter; E11.65 Type 2 diabetes mellitus with hyperglycemia; E11.22 Type 2 diabetes mellitus with diabetic chronic kidney disease; I12.9 Hypertensive chronic kidney disease with stage 1 through stage 4 chronic kidney disease, or unspecified chronic kidney disease; N18.9 Chronic kidney disease, unspecified; E03.9 Hypothyroidism, unspecified; J45.909 Unspecified asthma, uncomplicated; Z91.81 History of falling; Z78.0 Asymptomatic menopausal state